=== PATIENT | male | born 1985 | race Caucasian/White ===

== ENCOUNTER 2017-09-25 18:01 | Emergency (ER) | payer MEDICAID ==
[~2017-09-25] VITALS: Ht 177.8 cm; Wt 100.0 kg
[~2017-09-25 18:01] MED LIST: TRAM50TA4 PO; WARF7.5 PO
[2017-09-25 19:06] VITALS: BP 129/85
== END 2017-09-25 19:26 | disposition home or self-care (01) ==
LOC: EMS 18:03
DX: K08.89 Other specified disorders of teeth and supporting structures (principal); R03.0 Elevated blood-pressure reading, without diagnosis of hypertension; Z88.0 Allergy status to penicillin
CPT/HCPCS: 99283